=== PATIENT | female | born 1965 | race Caucasian/White ===

== ENCOUNTER 2016-06-20 19:32 | Inpatient (IN) | payer OTHER ==
--- NOTE | ~2016-06-20 | CO ---
Unit #: [id number] #: [id number] Patient: RAMON OLSON [id number] [address] [address] [id number] I MR#: [id number] NAME: RAMON OLSON ROOM: 575 Age: 50 Sex: F Admission Date: 06/20/2016 : 1965 Attending Physician: Jered Thacker M.D. 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 HISTORY OF PRESENT ILLNESS This is Dr. Miriam Zamora's patient. 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 BCR-ABL was 245%. Patient receiving Tasigna. During March 2016, her BCR-ABL ratio had dropped to 0.16. She is very compliant with the medication. Patient has chronic history of anemia. Patient has coronary artery disease. Patient is taking Brilinta. Patient has a hemorrhoidal bleeding. Patient came to hospital with shortness of breath, dyspnea on exertion, fatigue, and declined performance status. Her CBC showed WBC 7.6, hemoglobin 6.6, MCV 74, and platelets of 169. Her creatinine is 0.85. LFTs are normal. Transferrin saturation 3%. B12 145. Ferritin 4. She is receiving PRBC transfusion, intravenous iron, folic, and B12, which I started today. At present, she is feeling better. She wants to go home tomorrow. REVIEW OF SYSTEMS CONSTITUTIONAL: Mild declined performance status because of the anemia. EYES: No visual symptoms. EARS, NOSE AND THROAT: There is no runny nose or sore throat or difficulty hearing. CARDIOVASCULAR: No chest pain. No shortness of breath. No palpitations. No orthopnea. No PND. RESPIRATORY: No cough. No wheezing. No hemoptysis. GASTROINTESTINAL: No nausea, vomiting, diarrhea, constipation, hematochezia or melena. GENITOURINARY: No urinary frequency, hesitancy or urgency. No blood in the urine. MUSCULOSKELETAL: No muscle or joint pain. NEUROLOGIC: No headache. No numbness or tingling. No weakness. No seizure. PSYCHIATRIC: No anxiety, depression or mood disturbance. ENDOCRINE: No excessive urination or thirst. DERMATOLOGIC: No rash or change in the skin. ALLERGIC/IMMUNOLOGIC: No symptoms. Unit #: [id number] #: [id number] Patient: RAMON OLSON HEMATOLOGIC/LYMPHATIC: Denies any symptoms. PAST MEDICAL HISTORY CML on Tasigna, good response; CAD, status post stents on Brilinta. ALLERGIES Allergic to multiple medications including OxyContin. SOCIAL HISTORY Has been a smoker, 1 pack per day for almost more than 30 years, started at age 13. Denies alcohol abuse. SURGICAL HISTORY She has had multiple surgeries including partial hysterectomy, oophorectomy, cholecystectomy, and hemorrhoids. FAMILY HISTORY Negative for cancer. PHYSICAL EXAMINATION VITALS: Afebrile, pulse 60, respiratory rate 20, O2 saturation 100%, blood pressure 110/56. GENERAL: Patient is comfortable. ECOG is 0. The patient is pleasant. HEENT: Moist mucosa. Pupils equally reactive to light. Extraocular muscles intact. Sclerae anicteric. No obvious bleeding from nasal mucosa or oral mucosa. Scalp normal. Hearing normal. NECK: No JVD. No lymphadenopathy. LYMPHATIC/HEMATOLOGIC: There is no palpable adenopathy in the neck, axilla or inguinal area. CARDIOVASCULAR: S1, S2. Regular rate and rhythm. No S3 or S4. RESPIRATORY: Chest symmetrical, normal. Clear to auscultation bilaterally. No wheezes, no rales, no rhonchi. No dullness to percussion. ABDOMEN/GASTROINTESTINAL: Abdomen is soft, nontender, nondistended. No hepatosplenomegaly. EXTREMITIES: There is no clubbing, no cyanosis, no edema. No varicose veins. NEUROLOGICAL: Patient is alert, awake and oriented x3. Cranial nerves II-XII are intact. Sensory grossly intact. Motor is 4/5 in all four extremities. Gait is normal. Station is normal. Language is normal. Memory is normal. DTRs +2 in all four extremities. MUSCULOSKELETAL: No joint swelling. No bony tenderness. No muscle tenderness. SKIN: No petechiae, no rash, no ecchymosis. PSYCHIATRIC: No anxiety. No delusions or hallucinations. There is no agitation. Eye contact is normal. Affect is appropriate. There is no flight of ideas. DIAGNOSTIC STUDIES LABORATORY: As mentioned above above. IMPRESSION This is a 50-year-old female with the following active issues: 1. CML; patient was diagnosed with during May 2014. Her BCR-ABL ratio was 245%. She is taking Tasigna. At present, her BCR-ABL ratio is 0.16%. She is compliant. Will continue. She will follow up with Dr. Miriam Zamora. 2. Anemia: Most likely bleeding from AVM in the presence of Brilinta. I will give her intravenous iron, folic acid, and B12. Unit #: [id number] #: [id number] Patient: RAMON OLSON 3. Cardiovascular: Patient has a stent. She has coronary artery disease and she is on Brilinta. Please note that she is still smoking. Encouraged her to quit smoking. Dictated by... Marguerite Cline TD: 06/22/2016 07:11 JOB #: [id number] CC: Padmini/flavia Please Delete CONSULTATION REPORT X Bandar Zamora MD CONSULTATION REPORT
--- NOTE | ~2016-06-20 | US140 ---
[facility] A Service of [facility] RADIOLOGY TEXT RESULTS PATIENT: RAMON OLSON LOCATION: [facility]08-26 : [birth year] UNIT #: [id number] AGE: [address]: Jered Thacker MD SEX: F ORDER DR: [id number] [facility] [address] [place], [place] [address] [id number] I MR#: [id number] Acc #: [id number] NAME: RAMON OLSON : 1965 SEX: F STUDY DATE/TIME: 06/24/2016 16:13 UNIT: [facility] ROOM: [facility] STUDY DESCRIPTION: US UE Veins Unilat or Ltd Stdy Attending Physician: Jered Thacker M.D. Ordering Physician: Jered Thacker M.D. Primary Care Physician: Primary Care Physician No MEDICAL IMAGING REPORT This report is preliminary unless electronic signature is present EXAM Right upper extremity venous Doppler INDICATION Right upper extremity swelling, pain and redness for the past day. PROCEDURE Rod-scale color Doppler and spectral imaging deep veins right upper extremity COMPARISON None FINDINGS Deep veins right upper extremity compress normally, show normal color Doppler and spectral characteristics. There is superficial venous thrombosis in the right cephalic vein, that is occlusive. IMPRESSION 1. Superficial venous thrombosis is occlusive in the mid right cephalic vein. 2. No evidence for DVT in the right upper extremity Dictated by... Brien Painter M.D. THIS IS AN ELECTRONICALLY VERIFIED REPORT Brien Painter M.D. at 06/25/2016 7:18 AM EED/asya TD: 06/24/2016 22:10 JOB #: [id number] [facility] A [facility] RADIOLOGY TEXT RESULTS PATIENT: RAMON OLSON LOCATION: [facility] : 61 UNIT #: [id number] AGE: [address]: Jered Thacker MD SEX: F ORDER DR: MEDICAL IMAGING REPORT COPY
--- NOTE | ~2016-06-20 | HP ---
Unit #: [id number] #: [id number] Patient: RAMON OLSON [id number] [address] [address] [id number] I MR#: [id number] NAME: RAMON OLSON ROOM: [facility] Age: 50 Sex: F Admission Date: 06/20/2016 : 1965 Attending Physician: Sharonda Spencer M.D. Primary Care Physician: No Primary Care Physician HISTORY AND PHYSICAL CHIEF COMPLAINT Short of air, low hemoglobin. HISTORY OF PRESENT ILLNESS The patient is a 50-year-old female with a past medical history of CML, hypertension, coronary artery disease, COPD, hypothyroidism, cerebrovascular accident, diverticular disease, chronic back pain, tobacco abuse, who presented to the emergency department for evaluation of the above. Of note, the patient was hospitalized at [facility] 06/11/2016 for symptomatic anemia. She received 2 units of packed red blood cells. She was seen in consultation by Dr. Stallings. She apparently has severe iron deficiency anemia and intolerance to iron due to severe constipation. The plan was to treat her as an outpatient. The patient states that she has continued to be weak and short of breath. She has had dyspnea on exertion. Today she had bright red blood per rectum with hard stool. She denies any abdominal pain, no cough or fever. In the emergency department, hemoglobin was 6.6. She is currently received packed red blood cells. Blood pressure was 106/48. She is being admitted to [facility] for evaluation and further treatment. Of note, the patient underwent colonoscopy on 03/02/2014 that showed mild to moderate internal hemorrhoids with Dr. Negron. PAST MEDICAL HISTORY 1. Admission to [facility], 06/11/2016 for symptomatic anemia. 2. Chronic myelogenous leukemia followed by Dr. Zamora. 3. Chronic anemia. 4. Hypertension. 5. Coronary artery disease, status post stent placement. 6. COPD with continued tobacco abuse. 7. Hypothyroidism. 8. Cerebrovascular accident. 9. Diverticular disease, status post partial colectomy. 10. Chronic back pain maintained on narcotics. PAST SURGICAL HISTORY 1. Colonoscopy as noted above. 2. Epidural steroid injections. 3. Sigmoid colectomy. 4. Cardiac stent placement. Unit #: [id number] #: [id number] Patient: RAMON OLSON 5. Hemorrhoidectomy. 6. Abdominal hysterectomy. 7. Bladder repair. 8. Cholecystectomy. SOCIAL HISTORY The patient lives with her stepson. She smokes a pack of cigarettes daily. She denies alcohol use. FAMILY HISTORY Notable for coronary artery disease. ALLERGIES Oxycodone. HOME MEDICATIONS Zoloft, levothyroxine, baclofen, nitroglycerin, potassium, vitamin C, nicotine patch, atorvastatin, Tasigna, Valium, temazepam, metoprolol, Compazine, Colace, Senna, lisinopril, aspirin, hydrocodone, Brilinta. Home medications is going to be reviewed and verified. REVIEW OF SYSTEMS A ten point review of systems is negative except as indicated in the HPI. PHYSICAL EXAMINATION VITAL SIGNS: Temperature is 97.4, pulse 76, respirations 16, blood pressure 106/48. GENERAL: The patient is a female who is awake and alert. HEENT: Head is atraumatic. Conjunctivae are pale. NECK: Supple. Tracheal is midline. CARDIOVASCULAR: Regular rate and rhythm. LUNGS: Clear to auscultation bilaterally with no increased work of breathing. ABDOMEN: Soft, nontender with bowel sounds present in all four quadrants. EXTREMITIES: Nontender with no pedal edema. NEUROLOGIC: The patient is awake and alert. She follows commands. PSYCH: Mood and affect are normal. The patient is cooperative. SKIN: Generally pale. DIAGNOSTIC STUDIES LABORATORY STUDIES: Troponin is less than 0.05. Basic metabolic panel is normal. Complete blood count notable for hemoglobin and hematocrit of 6.6 and 21.1 respectively. MCV is 74.4, RDW is 19.1. ASSESSMENT The patient is a 50-year-old female with: 1. Asymptomatic anemia. The patient's hemoglobin was 9.1 on 06/11/2016 at 6.6 today. 2. Hematochezia. The patient last had a colonoscopy on 05/02/2013 that showed mild to moderate internal hemorrhoids. 3. History of chronic myelogenous leukemia, followed by Dr. Zamora. 4. Hypertension. 5. Coronary artery disease, status post stent placement. 6. COPD with continued tobacco abuse. 7. Hypothyroidism. 8. History of cerebrovascular accident. 9. Diverticular disease. 10. Chronic back pain maintained on opiates. Unit #: [id number] #: [id number] Patient: RAMON OLSON PLAN 1. Admit to an intermediate level. 2. Clear liquid diet for possible endoscopy pending Dr. Stallings's recommendations. 3. Hemoglobin and hematocrit one hour after transfusion q.6 hours. Will plan to transfer for hemoglobin less than 8 due to history of coronary artery disease. 4. Iron studies, B12, and folate. 5. Hemoccult stool. 6. Consult Dr. Stallings regarding symptomatic anemia. 7. Serial cardiac enzymes. 8. EKG if not done. 9. Protonix. 10. TSH. 11. Supplemental oxygen. 12. P.r.n. DuoNeb. 13. Repeat labs in the morning. 14. Check INR. 15. Hold aspirin and Brilinta pending further workup. Dictated by Marguerite Rubio/shea TD: 06/21/2016 05:33 JOB #: [id number] HISTORY AND PHYSICAL X Sharonda Spencer MD X HISTORY AND PHYSICAL
--- NOTE | ~2016-06-20 | DS ---
Unit #: [id number] #: [id number] Patient: RAMON OLSON [id number] [address] [place], [place] [address] [id number] I MR#: [id number] NAME: RAMON OLSON ROOM: 57 Age: 50 Sex: F Admission Date: 06/20/2016 : 1965 Discharge Date: 06/24/2016 Attending Physician: Jered Thacker M.D. Primary Care Physician: Miriam Primary Care Physician DISCHARGE SUMMARY ADMITTING DIAGNOSIS Symptomatic anemia. DISCHARGE DIAGNOSES 1. History of chronic myelogenous leukemia. 2. Hypertension. 3. Coronary artery disease. 4. Chronic obstructive pulmonary disease. 5. Hypothyroidism. 6. History of stroke. 7. Diverticular disease. 8. Chronic back pain. 9. Persistent tobacco abuse. PROCEDURES PERFORMED EGD, colonoscopy and push enteroscopy. CONSULTANTS Dr. Zamora, Dr. García, and Dr. Rivera. HISTORY OF PRESENTING ILLNESS The patient is a 50-year-old lady with multiple medical problems who was admitted on 06/20/2016 because of shortness of breath and hemoglobin of 6.6. HOSPITAL COURSE She had received platelet transfusions. She was on Brilinta because of coronary artery disease, status post stent placement in 12/2005. She had an EGD and colonoscopy done along with a push enteroscopy. No acute source of bleed was identified. Her hemoglobin is stable at 9.5. I spoke with Dr. Zamora and Dr. García and they mentioned it is okay to discharge. Dr García mentioned it is okay to restart the Brilinta. Will restarted the Brilinta. In the hospital course, her TSH was noted to be high at 37.98. She was taking 112 mcg of Synthroid at home. We consulted Dr. Rivera and the dose was increased to 137 mcg of Synthroid every day. She is requested to undergo a repeat TSH and followup with Dr. Rivera in four weeks. She is doing clinically better and she will be discharged home. PHYSICAL EXAMINATION ON DAY OF DISCHARGE VITAL SIGNS: Temperature 97.9, pulse rate 67, respiratory rate 20, blood pressure 136/52. GENERAL: Patient is alert and oriented x3, lying in the bed. No acute distress. HEENT: Normocephalic and atraumatic. No icterus. PERRLA. Extraocular muscles intact. Unit #: [id number] #: [id number] Patient: RAMON OLSON NECK: Neck is supple. No JVD. HEART: S1, S2, regular rate and rhythm. CHEST: Bilaterally equal air entry. Clear to auscultation. ABDOMEN: Soft, nontender. Bowel sounds present. EXTREMITIES: No edema. Normal pulses. DISCHARGE MEDICATIONS 1. Brilinta 90 mg p.o. twice a day. 2. Protonix 40 mg daily. 3. Baclofen 10 mg p.o. q. twice a day. 4. Synthroid, dosage is changes to 137 mcg p.o. daily. 5. Nitroglycerin p.r.n. 6. Ascorbic acid 1,000 mg p.o. daily. 7. Zoloft 100 mg in the morning. 8. Combivent 3 mL inhalation q.4 p.r.n. for shortness of breath. 9. Lipitor 80 mg daily. 10. Tasigna 150 mg p.o. b.i.d. 11. Compazine 10 mg p.o. 3 times a day. 12. Nicotine 21 mg topically daily. 13. Valium 10 mg p.o. twice a day. 14. Temazepam 30 mg at bedtime. 15. Metoprolol 25 mg daily. 16. Colace 200 mg p.o. twice a day. 17. Senna 2 tabs p.o. at bedtime. 18. Lisinopril 20 mg daily. 19. Aspirin 81 mg daily. 20. Hydrocodone and Tylenol 1 tab p.o. q.6 p.r.n. for pain. Note: I am not giving any prescriptions for hydrocodone, she is taking a prescription from her primary care. DISCHARGE INSTRUCTIONS Other discharge instructions explained in detail to the patient. Total time spent in her care 35 minutes. Dictated by... Marguerite Fitzpatrick TD: 06/25/2016 13:15 JOB #: [id number] DISCHARGE SUMMARY X X DISCHARGE SUMMARY
--- NOTE | ~2016-06-20 | OR ---
Unit #: [id number] #: [id number] Patient: RAMON OLSON [id number] [address] [place], [place] [address] [id number] I MR#: [id number] NAME: RAMON OLSON ROOM: 575 Date of Procedure: 06/23/2016 Admission Date: 06/20/2016 Surgeon: Jamarcus García M.D. : 1965 Attending Physician: Jered Thacker M.D. OPERATIVE REPORT PREOPERATIVE DIAGNOSES Iron deficiency anemia. The patient does have underlying chronic myeloid leukemia. She has required blood transfusion two occasions by 10 days. PROCEDURES PERFORMED Push enteroscopy up to proximal jejunum with biopsies as well as colonoscopy up to terminal ileum. POSTOPERATIVE DIAGNOSES For push enteroscopy: Completely normal examination up to proximal jejunum. Multiple areas of proximal jejunum were intubated and appeared normal. The patient did not have any angiodysplasias. Rest of the examination also normal. Biopsies were obtained from the duodenal mucosa and jejunal mucosa to look for any evidence of partial villous atrophy or celiac disease. For colonoscopy: The patient has healthy surgical anastomosis in the sigmoid colon from previous surgery, otherwise examination was normal up to cecum and terminal ileum. The quality of the prep was excellent. A single diverticulum was seen in the sigmoid colon. The patient did not have any polyps nor any mass lesions and no angiodysplasias were present. The quality of the prep was excellent. The patient did not have any hemorrhoids. RECOMMENDATIONS There is no potential source of blood loss in the GI tract and a supportive and symptomatic treatment with blood transfusions and iron infusions are needed. SEDATION USED Procedural sedation. DESCRIPTION OF PROCEDURE Following detailed explanation of the potential risks and complications of an upper endoscopy and a push enteroscopy as well as colonoscopy namely perforation, bleeding, and complications related to sedation, the patient was brought to GI lab and laid in the left lateral decubitus position. Lubricated tip of the Olympus video pediatric colonoscopy was inserted through the oral cavity into the esophagus. The entire esophageal mucosa was examined and appeared normal. Z-line was nicely demarcated, there being no esophagitis or hiatus hernia. The scope was then advanced into Unit #: [id number] #: [id number] Patient: RAMON OLSON the gastric cavity and the latter was insufflated. Mucosa of the fundus, body, and antrum was examined and appeared normal. Pylorus was intubated with visualization of the normal duodenal bulb as well as second, third, and fourth part of duodenum. The scope tip was then navigated up to the area of the proximal jejunum after intubating several jejunal loops. The mucosa throughout was found to be normal. Successive segments of the small bowel mucosa were examined upon withdrawal and appeared unremarkable. There were no angiodysplasias seen. Biopsies were obtained from the duodenum mucosa to look for any evidence of partial villous atrophy or celiac disease. The scope was then withdrawn in the antrum and retroverted, whereupon incisura, cardia, and greater curve was examined and no additional findings noted. The scope was then withdrawn in the distal esophagus. The entire esophageal mucosa was examined all the way up to pharynx. No additional findings were noted. The examination table was then turned by 180 degrees and the patient was positioned for a colonoscopy. A digital rectal examination was performed, which was normal. Lubricated tip of the Olympus video colonoscope was inserted through the anus and advanced under direct vision. The scope was advanced past rectosigmoid into descending colon. A single diverticulum was seen in the area of the sigmoid colon where an end-to-side colocolic anastomosis was also seen. The mucosa however throughout was normal. The scope tip was then navigated all the way up to cecum with visualization of the ileocecal valve and the appendiceal orifice. Preparation was excellent with good visualization and photodocumentation was obtained. Last several inches of the terminal ileum were also visualized after intubation of the ileocecal valve and appeared normal. Successive segments of the colonic mucosa were examined upon withdrawal and appeared unremarkable. There being no polyps, mass lesions, or AVMs. Other than the single diverticulum seen earlier, no other abnormalities were noted. The end-to-side surgical anastomosis in the sigmoid colon was again noted. The patient did not have any internal hemorrhoids at anal verge. The scope was then withdrawn. The patient returned to the recovery area. She tolerated the procedure without any postprocedure complications. Dictated by.Jer. Marguerite Ramirez TD: 06/23/2016 20:08 JOB #: [id number] CC: Bandar Zamora M.D. OPERATIVE REPORT X Jamarcus García MD PROCEDURE OPERATIVE NOTE
--- NOTE | ~2016-06-20 | EKG ---
PATIENT: RAMON OLSON UNIT #: [id number] Ventricular Rate: 77 BPM Atrial Rate: 77 BPM P-R Interval: 162 ms QRS Duration: 94 ms Q-T Interval: 418 ms QTC Calculation(Bezet): 473 ms P [place]: 49 degrees Calculated R [place]: -7 degrees Calculated T [place]: 67 degrees Diagnosis Line: Normal sinus rhythm Diagnosis Line: Inferior infarct , age undetermined Diagnosis Line: Abnormal ECG Diagnosis Line: When compared with ECG of 10-JUN-2016 20:17, Diagnosis Line: No significant change was found Diagnosis Line: Confirmed by JOJO GARCIA MD ([id number]) on 06/21/2016 Diagnosis Line: 5:16:29 PM INTERPRETING MD: JOSE FLORES
--- NOTE | ~2016-06-20 | CO ---
Unit #: [id number] #: [id number] Patient: RAMON OLSON [id number] [address] [address] [id number] MR#: [id number] NAME: RAMON OLSON ROOM: 575 Age: 50 Sex: F Admission Date: 06/20/2016 : 1965 Attending Physician: Jered Thacker M.D. Consultation Date: 06/21/2016 CONSULTATION REPORT REASON FOR CONSULT Abnormal TSH level. HISTORY OF PRESENT ILLNESS This is a 50-year-old female with history of CML, hypothyroidism, hypertension, coronary artery disease, CVA, history of stent placement, who has been recently hospitalized with symptomatic pneumonia, received 2 packed RBC. She came back again with the weakness, shortness of air. She was found to be severely anemic with a hemoglobin of 6.6. On her labs, she was found to have normal thyroid function test with a TSH of 37. I have been asked to see the patient for further management. MEDICAL HISTORY CML, anemia, coronary artery disease, hypothyroidism, COPD, history of tobacco use. PAST SURGICAL HISTORY Cardiac stent placement in the past, hysterectomy, bladder repair, cholecystectomy. SOCIAL HISTORY Lives with her stepson. Smokes one pack per day. FAMILY HISTORY Remarkable for coronary artery disease. ALLERGIES To oxycodone. MEDICATIONS Home medication list is reviewed. The patient has been taking levothyroxine 100 mcg daily. For other medications, please see current medicines. REVIEW OF SYSTEMS A 10-point review of systems is remarkable for shortness of air, weakness, blood per rectum. Rest of the 10-point review of systems is unremarkable. PHYSICAL EXAMINATION GENERAL: She looks very pale. VITAL SIGNS: Temperature 97.6, pulse 62, respirations 20, blood pressure is 122/56. HEENT: EOMI. Pupils are equally reactive to light. NECK: Supple. No thyromegaly noted. No lymph nodes. Unit #: [id number] #: [id number] Patient: RAMON OLSON CHEST: Good air entry. CVS: Regular rhythm. S1, S2. No murmurs. ABDOMEN: Soft and obese. Bowel sounds positive. EXTREMITIES: No edema noted. DIAGNOSTIC STUDIES LABORATORY RESULTS: TSH is 37.98. ASSESSMENT 1. Hypothyroidism. 2. Coronary artery disease plus stent. 3. History of chronic myelogenous leukemia. PLAN Increase levothyroxine to 137 mcg daily. Follow up in office in 4 weeks. Dictated by... Marguerite Steward/shala TD: 06/22/2016 03:44 JOB #: [id number] CONSULTATION REPORT X Minor Rivera MD X CONSULTATION REPORT
--- NOTE | ~2016-06-20 | CO ---
Unit #: [id number] #: [id number] Patient: RAMON OLSON [id number] [address] [place], [place] [address] [id number] I MR#: [id number] NAME: RAMON OLSON ROOM: 575 Age: 50 Sex: F Admission Date: 06/20/2016 : 1965 Attending Physician: Jered Thacker M.D. Consultation Date: 06/21/2016 CONSULTATION REPORT REASON FOR CONSULTATION Iron deficiency anemia. HISTORY OF PRESENT ILLNESS Ms. Delong is a very pleasant 50-year-old white female. The patient has presented with a history of increasing shortness of breath and found to have severe symptomatic iron-deficiency anemia. She is feeling a bit better after being transfused with packed cells. This is the second consecutive admission in less than two weeks for identical reason. The patient does have significant past medical problems most prominently chronic myeloid leukemia and COPD, as well as coronary artery disease. She denies any history of overt GI bleed in the form of hematemesis, melena, or hematochezia. She had no past medical history of hematemesis, melena, or hematochezia. Yesterday, she had some bright red blood per rectum. There is no history of any abdominal pain, chills, or rigors, or fever. The patient had a colonoscopy in 2013, that did not show any potential source of blood loss, but only hemorrhoids. PAST MEDICAL HISTORY Significant for history of chronic myelogenous leukemia, followed by Dr. Zamora; history of hypertension; coronary artery disease, status post coronary stent placements; COPD; continued tobacco abuse; hypothyroidism; cerebrovascular accident; diverticulosis; status post partial colectomy and anastomosis; chronic back pain, maintained on narcotics. PAST SURGICAL HISTORY Include epidural steroid injections, sigmoid colectomy, cardiac coronary stent placements, hemorrhoidectomy, abdominal hysterectomy, bladder suspension repair, cholecystectomy. HOME MEDICATIONS Include Zoloft, levothyroxine, baclofen, nitroglycerin, potassium, vitamin C, nicotine patch, atorvastatin, Tasigna, Valium, temazepam, metoprolol, Compazine, Colace, senna, lisinopril, aspirin, hydrocodone, Brilinta. ALLERGIES She is allergic to oxycodone. FAMILY HISTORY Significant for coronary artery disease. SOCIAL HISTORY The patient lives with her stepson. Continues to smoke and does not drink alcohol. Unit #: [id number] #: [id number] Patient: RAMON OLSON REVIEW OF SYSTEMS Detailed review of organ systems does not reveal any recent weight loss. No history of fever, chills, or rigors. No history of headache, seizures, chest pain, or syncope. No history of cough, expectoration, or hemoptysis. There was history of increasing shortness of breath and fatigue. No history of dysuria, hematuria, or pyuria. No history of focal seizures or extremity weakness. Rest of review of organ systems is unremarkable. PHYSICAL EXAMINATION GENERAL: She is alert and oriented, appears quite pale. VITAL SIGNS: Stable with a temperature of 98.3, pulse is 61 per minute and regular, respiratory rate is 18, and blood pressure is 122/56. She weighs 164 pounds. Her baseline weight has been about the same in the past. HEENT: She has moderate pallor. There being no icterus, lymphadenopathy, or peripheral edema. CARDIOVASCULAR: Normal heart sounds. No murmurs on auscultation. LUNGS: Reveal normal breath sounds. Good air entry. ABDOMEN: Soft and nontender. Liver and spleen are not palpable. Bowel sounds normal. DIAGNOSTIC STUDIES LABORATORY RESULTS: Shows admission hemoglobin of 6.6, post transfusion hemoglobin is 8.8. White count was 7.2 and platelet count was 157. Metabolic profile is normal. The patient's iron studies show virtually no iron reserves with a transferrin saturation and iron and ferritin in single digits. CLINICAL IMPRESSION The patient with severe symptomatic iron-deficiency anemia on a background of chronic myeloid leukemia and other comorbid cardiopulmonary problems as mentioned under the past medical history. The most likely etiology of iron deficiency anemia is occult gastrointestinal blood loss. The patient will require panendoscopy especially to look for angiodysplasias or AVMs in the gastrointestinal tract. A push enteroscopy and a colonoscopy will be scheduled in the next couple of days depending on the patient's ability to tolerate the colonic prep. The pros and cons of procedure, potential risks, and complications were discussed with the patient. She was reassured. Thank you for asking me to see this pleasant woman. I appreciate the consult. Dictated by... Jamarcus García M.D. COLTON/shala TD: 06/23/2016 15:37 JOB #: [id number] CC: Marguerite Cline M.D. Unit #: [id number] #: [id number] Patient: RAMON OLSON CONSULTATION REPORT X Jamarcus García MD CONSULTATION REPORT
[~2016-06-20 19:32] MED LIST: ALB/IPRATROPIUM/1 EA INH; AMBIEN10 MG PO; ASPIRIN81 MG PO; ATORVASTATIN CA80 MG PO; BACLOFEN10 MG PO; BISACODYL 5 MG PO; BRILINTA90 MG PO; CATAPRES0.1 MG PO; COLACE 100 MG PO; COMBIVENT INHALER PO; COMPAZINE10 M1 PO; COMPAZINE10 M3 PO; DIAZEPAM10 MG PO; DOCUSATE SODIU100 MG PO; DOXYCYCLINE HY100 M3 PO; FOLBIC RF TABL1 EACH PO; GABAPENTIN600 MG PO; HYDROCODON-ACE1 EAC5 PO; LEVOTHYROXINE100 MCG PO; LEVOTHYROXINE25 MCG PO; LIPITOR80 MG PO; LISINOPRIL20 MG PO; LISINOPRIL30 MG PO; LO-DOSE ASPIRIN81 M1 PO; LOPRESSOR PO; METOPROLOL 12.5 MG PO; METOPROLOL SUCC25 MG PO; MUCINEX 600 MG PO; NEURONTIN600 MG PO; NICOTINE1 EAC2 TOP; NITROGLYCERIN0.4 MG SL; NORVASC 5 MG PO; OMNICEF 300 MG PO; PERCOCET 5/321 UDTAB PO; POTASSIUM; POTASSIUM PO; POTASSIUM99 M1 PO; POTASSIUM99 M2 PO; PREDNISONE10 MG PO; RESTORIL15 MG PO; SENNA LAXATIVE1 TAB PO; SENNA8.6 M1 PO; SENOKOT S PO; SERTRALINE HCL50 MG PO; SYNTHROID 50 MCG PO; SYNTHROID PO; SYNTHROID0.1 MG PO; TASIGNA150 MG PO; TEMAZEPAM30 MG PO; TYLENOL 325 MG PO; VALIUM10 MG PO; VITAMIN B-1000 MCG/1 IM; VITAMIN B12-FO1 EACH PO; VITAMIN C500 M6 PO; XARELTO15 MG PO; XARELTO20 MG PO; ZESTRIL30 MG PO; ZITHROMAX PO; ZOLOFT100 MG PO
[2016-06-20 19:51] LABS: BASOPHIL% 0.3 % (0-2.5); EOSINOPHIL# 0.1 X10e3 (0-0.7); EOSINOPHIL% 1.8 % (0.0-7.0); HEMATOCRIT 21.1 % (35.0-45.0); LYMPHOCYTE# 1.5 X10e3 (1.0-3.5); MEAN CELL VOLUME 74.4 FL (83-96); MEAN CORPUSCULAR HEMOGLOBIN 23.3 PG (28-34); MEAN CORPUSCULAR HGB CONC 31.3 g/dL (30-36); MEAN PLATELET VOLUME 9.1 FL (6.5-11.5); MONOCYTE# 0.4 X10e3 (0-1.0); MONOCYTE% 5.3 % (3.0-12.0); NEUTROPHIL# 5.6 X10e3 (1.5-7.1); NEUTROPHIL% 73.6 % (40-75); PLATELET COUNT 169 X10e3 (140-420); RED BLOOD COUNT 2.84 X10e (3.90-5.30); RED CELL DISTRIBUTION WIDTH 19.1 % (11.0-15.5); WHITE BLOOD COUNT 7.6 X10e3 (4.0-10.5)
[2016-06-20 19:58] LABS: DIFF IND YES; HEMOGLOBIN 6.6 gm/dL (12.0-16.0)
[2016-06-20 20:07] LABS: POC - CKMB 3.1 ng/mL (0.0-7.9); POC - TROPONIN <0.05 ng/mL (<=0.05)
[2016-06-20 20:15] LABS: BLOOD UREA NITROGEN 15 mg/dL (9-23); BUN/CREATININE RATIO 21.42; CARBON DIOXIDE 22 mmol/L (22-31); CHLORIDE 108 mmol/L (100-111); CREATININE SERUM 0.7 mg/dL (0.6-1.4); GLOM FILT RATE Estimated ABOVE60 mL/min (>60); GLUCOSE FASTING 103 mg/dL (70-110); POTASSIUM 4.1 mmol/L (3.5-5.1); SODIUM 140 mmol/L (135-145)
[2016-06-20 20:28] LABS: PLATELET ESTIMATE NORMAL (NORMAL)
[2016-06-20 20:29] LABS: HYPOCHROMIA SL; MICROCYTOSIS SL
[2016-06-20 20:30] LABS: ANISOCYTOSIS MOD; POLYCHROMASIA SL
[2016-06-20 23:45] LABS: PROTHROMBIN TIME (PATIENT) 10.7 SECONDS (9.6-11.5)
[2016-06-21 02:17] LABS: HEMATOCRIT 27.5 % (35.0-45.0)
[2016-06-21 02:19] LABS: HEMOGLOBIN 8.7 gm/dL (12.0-16.0)
[2016-06-21 02:59] LABS: %MB 2.1 % (0.0-4.0); MB 3.9 ng/ml
[2016-06-21 08:05] LABS: BLOOD UREA NITROGEN 15 mg/dL (9-23); BUN/CREATININE RATIO 18.75; CALCIUM SERUM 9.2 mg/dL (8.4-10.2); CARBON DIOXIDE 22 mmol/L (22-31); CHLORIDE 104 mmol/L (100-111); CREATININE SERUM 0.8 mg/dL (0.6-1.4); GLOM FILT RATE Estimated ABOVE60 mL/min (>60); GLUCOSE FASTING 100 mg/dL (70-110); IRON SERUM 13 ug/dL (28-170); POTASSIUM 3.7 mmol/L (3.5-5.1); SODIUM 139 mmol/L (135-145); TOTAL IRON BINDING CAPACITY 395 ug/dL (269-535); TRANSFERRIN 282 mg/dL (192-382); TRANSFERRIN SATURATION 3 % (20-50)
[2016-06-21 08:08] LABS: FOLATE (FOLIC ACID) 22.5 ng/mL (>5.8)
[2016-06-21 08:52] LABS: BASOPHIL% 0.4 % (0-2.5); EOSINOPHIL# 0.2 X10e3 (0-0.7); EOSINOPHIL% 2.6 % (0.0-7.0); HEMATOCRIT 22.4 % (35.0-45.0); HEMOGLOBIN 7.3 gm/dL (12.0-16.0); LYMPHOCYTE# 2.2 X10e3 (1.0-3.5); LYMPHOCYTE% 29.8 % (17.0-45.0); MEAN CELL VOLUME 75.4 FL (83-96); MEAN CORPUSCULAR HEMOGLOBIN 24.5 PG (28-34); MEAN CORPUSCULAR HGB CONC 32.6 g/dL (30-36); MEAN PLATELET VOLUME 9.3 FL (6.5-11.5); MONOCYTE# 0.5 X10e3 (0-1.0); MONOCYTE% 6.9 % (3.0-12.0); NEUTROPHIL# 4.4 X10e3 (1.5-7.1); NEUTROPHIL% 60.3 % (40-75); PLATELET COUNT 157 X10e3 (140-420); RED BLOOD COUNT 2.97 X10e (3.90-5.30); RED CELL DISTRIBUTION WIDTH 19.6 % (11.0-15.5); WHITE BLOOD COUNT 7.2 X10e3 (4.0-10.5)
[2016-06-21 08:54] LABS: DIFF IND YES
[2016-06-21 09:38] LABS: ANISOCYTOSIS SL; PLATELET ESTIMATE NORMAL (NORMAL)
[2016-06-21 09:39] LABS: HYPOCHROMIA SL; MICROCYTOSIS SL
[2016-06-21 09:41] LABS: OVALOCYTES PRESENT
[2016-06-21 09:43] LABS: %MB 1.9 % (0.0-4.0); MB 2.9 ng/ml; TARGET CELLS SL
[2016-06-21 14:22] LABS: HEMATOCRIT 27.3 % (35.0-45.0); HEMOGLOBIN 8.8 gm/dL (12.0-16.0)
[2016-06-21 19:56] LABS: HEMATOCRIT 31.1 % (35.0-45.0)
[2016-06-22 08:26] LABS: HEMATOCRIT 31.3 % (35.0-45.0); HEMOGLOBIN 10.2 gm/dL (12.0-16.0); MEAN CELL VOLUME 78.3 FL (83-96); MEAN CORPUSCULAR HEMOGLOBIN 25.6 PG (28-34); MEAN CORPUSCULAR HGB CONC 32.7 g/dL (30-36); MEAN PLATELET VOLUME 9.2 FL (6.5-11.5); RED CELL DISTRIBUTION WIDTH 19.8 % (11.0-15.5); WHITE BLOOD COUNT 8.7 X10e3 (4.0-10.5)
[2016-06-22 08:58] LABS: ALBUMIN SERUM 4.4 g/dL (3.5-5.0); ALKALINE PHOSPHATASE 72 U/L (32-92); ALT (SGPT) 13 U/L (10-40); AST (SGOT) 18 U/L (10-42); BILIRUBIN,TOTAL 0.6 mg/dL (0.2-2.0); BLOOD UREA NITROGEN 18 mg/dL (9-23); CALCIUM SERUM 8.9 mg/dL (8.4-10.2); CARBON DIOXIDE 22 mmol/L (22-31); CHLORIDE 104 mmol/L (100-111); CREATININE SERUM 0.8 mg/dL (0.6-1.4); GLOM FILT RATE Estimated ABOVE60 mL/min (>60); GLUCOSE FASTING 88 mg/dL (70-110); PROTEIN TOTAL SERUM 7.6 g/dL (6.0-8.3); SODIUM 136 mmol/L (135-145)
[2016-06-23 06:40] LABS: HEMATOCRIT 29.1 % (35.0-45.0); HEMOGLOBIN 9.5 gm/dL (12.0-16.0); MEAN CELL VOLUME 78.5 FL (83-96); MEAN CORPUSCULAR HEMOGLOBIN 25.5 PG (28-34); MEAN CORPUSCULAR HGB CONC 32.5 g/dL (30-36); MEAN PLATELET VOLUME 9.4 FL (6.5-11.5); RED BLOOD COUNT 3.71 X10e (3.90-5.30); RED CELL DISTRIBUTION WIDTH 20.6 % (11.0-15.5); WHITE BLOOD COUNT 6.4 X10e3 (4.0-10.5)
[2016-06-23 07:02] LABS: BLOOD UREA NITROGEN 13 mg/dL (9-23); BUN/CREATININE RATIO 16.25; CALCIUM SERUM 8.7 mg/dL (8.4-10.2); CARBON DIOXIDE 26 mmol/L (22-31); CHLORIDE 103 mmol/L (100-111); CREATININE SERUM 0.8 mg/dL (0.6-1.4); GLOM FILT RATE Estimated ABOVE60 mL/min (>60); GLUCOSE FASTING 82 mg/dL (70-110); POTASSIUM 3.8 mmol/L (3.5-5.1); SODIUM 135 mmol/L (135-145)
[2016-06-24 07:52] LABS: HEMATOCRIT 28.9 % (35.0-45.0); HEMOGLOBIN 9.5 gm/dL (12.0-16.0); MEAN CELL VOLUME 78.4 FL (83-96); MEAN CORPUSCULAR HEMOGLOBIN 25.8 PG (28-34); MEAN CORPUSCULAR HGB CONC 32.9 g/dL (30-36); MEAN PLATELET VOLUME 9.1 FL (6.5-11.5); RED BLOOD COUNT 3.69 X10e (3.90-5.30); RED CELL DISTRIBUTION WIDTH 21.4 % (11.0-15.5); WHITE BLOOD COUNT 7.4 X10e3 (4.0-10.5)
[2016-06-24 08:24] LABS: BLOOD UREA NITROGEN 13 mg/dL (9-23); BUN/CREATININE RATIO 16.25; CALCIUM SERUM 8.7 mg/dL (8.4-10.2); CARBON DIOXIDE 24 mmol/L (22-31); CHLORIDE 108 mmol/L (100-111); CREATININE SERUM 0.8 mg/dL (0.6-1.4); GLOM FILT RATE Estimated ABOVE60 mL/min (>60); GLUCOSE FASTING 101 mg/dL (70-110); POTASSIUM 3.8 mmol/L (3.5-5.1); SODIUM 137 mmol/L (135-145)
[2016-06-24] MEDS ORDERED: PROTONIX PO (13:35)
[2016-06-24] MEDS ORDERED: COMBIVENT U/D3 M1 INH (13:38)
== END 2016-06-24 21:30 | disposition home health service (06) | DRG 812 ==
LOC: CED 19:32 → CEDOF 23:15 → C5C 06-21 00:16
PROVIDERS: Emergency Medicine; Family Medicine; Internal Medicine; Internal Medicine Gastroenterology; Internal Medicine Hematology
PROC: 30233N1 Transfusion of Nonautologous Red Blood Cells into Peripheral Vein, Percutaneous Approach (ICD-10-PCS; 2016-06-21)
PROC: 0DB98ZX Excision of Duodenum, Via Natural or Artificial Opening Endoscopic, Diagnostic (ICD-10-PCS; principal; 2016-06-23 14:00)
PROC: 0DBA8ZX Excision of Jejunum, Via Natural or Artificial Opening Endoscopic, Diagnostic (ICD-10-PCS; 2016-06-23 14:00)
PROC: 0DJD8ZZ Inspection of Lower Intestinal Tract, Via Natural or Artificial Opening Endoscopic (ICD-10-PCS; 2016-06-23 14:00)
DX: D50.9 Iron deficiency anemia, unspecified (principal); C92.10 Chronic myeloid leukemia, BCR/ABL-positive, not having achieved remission; K92.1 Melena; I10 Essential (primary) hypertension; J44.9 Chronic obstructive pulmonary disease, unspecified; F17.200 Nicotine dependence, unspecified, uncomplicated; I25.10 Atherosclerotic heart disease of native coronary artery without angina pectoris; E03.9 Hypothyroidism, unspecified; K57.90 Diverticulosis of intestine, part unspecified, without perforation or abscess without bleeding; G89.29 Other chronic pain; M54.9 Dorsalgia, unspecified; Z86.73 Personal history of transient ischemic attack (TIA), and cerebral infarction without residual deficits; D64.9 Anemia, unspecified; K64.8 Other hemorrhoids; Z90.710 Acquired absence of both cervix and uterus; Z88.5 Allergy status to narcotic agent
CPT/HCPCS: 36415; 80048; 80053; 82550; 82553; 82607; 82728; 82746; 83540; 83550; 84443; 84484; 85014; 85018; 85025; 85027; 85610; 86850; 86900; 86901; 86923; 88305; 93005; 93971; 94640; 94760; 99285; C9113; J2250; J2916; J3010; J3420; P9016

== ENCOUNTER → 2016-10-16 | Outpatient (CLI) | payer OTHER ==
[~2016-10-16] MED LIST changes: +COMBIVENT U/D3 M1 INH; +PROTONIX PO; +SENNA LAXATIVE25 MG PO; +VITAMIN D1000 UNIT PO
--- NOTE | ~2016-10-16 | CT55 ---
[facility] A Service of [facility] RADIOLOGY TEXT RESULTS PATIENT: RAMON OLSON LOCATION: CNUC : 61 UNIT #: [id number] AGE: [address]: Bandar Zamora MD SEX: F ORDER DR: [id number] [place] [id number] [facility]. [place], [place] [address] [id number] O MR#: [id number] Acc #: [id number] NAME: RAMON OLSON : 1965 SEX: F STUDY DATE/TIME: 10/16/2016 8:55 UNIT: [facility] ROOM: STUDY DESCRIPTION: CT Chest W Con Attending Physician: Bandar Zamora M.D. Referring Physician: Bandar Zamora M.D. Ordering Physician: Bandar Zamora M.D. Primary Care Physician: No Primary Care Physician MEDICAL IMAGING REPORT This report is preliminary unless electronic signature is present EXAM CT chest INDICATIONS Leukemia. Sternal mass. Iron deficiency anemia. CML. Restaging for observation for metastatic disease. TECHNIQUE CT of the chest utilizing 100 mL Isovue-370 IV contrast. Coronal and sagittal reconstructions were obtained. This CT exam was performed with one or more of the following radiation dose reduction techniques: automatic exposure control, adjustment of mA and/or kV according to patient size, and iterative reconstruction. COMPARISON Bone scan dated 10/16/2016. CT chest 04/24/2012. FINDINGS There are some calcifications at the aortic valve. This is most commonly seen in association with aortic valvular stenosis. The thoracic aorta is normal in caliber. There is moderate coronary artery calcifications. No pericardial or pleural effusion. No pathologically enlarged mediastinal or hilar lymph nodes. No enlarged axillary or supraclavicular lymph nodes. There is no suspicious pulmonary findings. There is a small pulmonary nodule in the left lower lobe that is unchanged from 2014 and considered benign. IMPRESSION 1. No evidence of metastatic disease in the chest. [facility] A Service of [facility] RADIOLOGY TEXT RESULTS PATIENT: RAMON OLSON LOCATION: CNUC : 63 UNIT #: [id number] AGE: [address]: Bandar Zamora MD SEX: F ORDER DR: 2. Aortic valvular calcifications. This is often associated with aortic valvular stenosis. Consider correlation with echocardiogram. Dictated by... Brenden Jeff M.D. THIS IS AN ELECTRONICALLY VERIFIED REPORT Brenden Jeff M.D. at 10/16/2016 5:00 PM RUTH ANN/naila TD: 10/16/2016 15:45 JOB #: [id number] MEDICAL IMAGING REPORT Page 1 of 1 COPY
--- NOTE | ~2016-10-16 | NM8 ---
[facility] A Service of [facility] RADIOLOGY TEXT RESULTS PATIENT: RAMON OLSON LOCATION: CN : 63 UNIT #: [id number] AGE: [address]: Bandar Zamora MD SEX: F ORDER DR: [id number] [place] [id number] [facility]. [place], [place] [address] [id number] O MR#: [id number] Acc #: [id number] NAME: RAMON OLSON : 1965 SEX: F STUDY DATE/TIME: 10/16/2016 11:48 UNIT: [facility] ROOM: STUDY DESCRIPTION: NM Bone or Joint Whole Body Attending Physician: Bandar Zamora M.D. Referring Physician: Bandar Zamora M.D. Ordering Physician: Bandar Zamora M.D. Primary Care Physician: Primary Care Physician No MEDICAL IMAGING REPORT This report is preliminary unless electronic signature is present EXAM Whole-body bone scan HISTORY 50-year-old female with chronic myeloid leukemia, not currently in remission. Complains of knot in sternum. Noticed several months ago. COMPARISON CT chest 10/16/2016 FINDINGS Whole-body and selected spot images performed of the axial and appendicular skeleton form the axial and appendicular skeleton following the intravenous administration of 24.4 mCi technetium 99m MDP. Examination demonstrates mild increased uptake within the medial aspect of both knees in the region of the proximal medial tibia could reflect early degenerative change. Mild increased uptake within the left knee patellofemoral joint also may reflect early osteoarthritic change. No abnormal uptake identified within the long bones, pelvis, ribs, sternum or skull to suggest osseous metastatic disease. Bilateral renal activity and normal bladder activity noted. IMPRESSION 1. Mild degenerative uptake within the medial compartment of both knees and also within the patellofemoral compartment of the left knee. 2. No findings to suggest osseous metastatic disease and in particular no abnormal uptake identified within the sternum. Dictated by.Jessica Arroyo M.D. [facility] A Service of [facility] RADIOLOGY TEXT RESULTS PATIENT: RAMON OLSON LOCATION: [facility] : 63 UNIT #: [id number] AGE: [address]: Bandar Zamora MD SEX: F ORDER DR: THIS IS AN ELECTRONICALLY VERIFIED REPORT Maureen Arroyo M.D. at 10/17/2016 2:47 PM Sanjuanita TD: 10/16/2016 21:18 JOB #: [id number] MEDICAL IMAGING REPORT Page 1 of 1 COPY
--- NOTE | ~2016-10-16 | MY29 ---
[facility] A Service of [facility] RADIOLOGY TEXT RESULTS PATIENT: RAMON OLSON LOCATION: CNUC : 63 UNIT #: [id number] AGE: [address]: Bandar Zamora MD SEX: F ORDER DR: [id number] [facility] [address] [facility]. [place], [place] [address] [id number] O MR#: [id number] Acc #: [id number] NAME: RAMON OLSON : 1965 SEX: F STUDY DATE/TIME: 10/16/2016 9:42 UNIT: CN ROOM: STUDY DESCRIPTION: MY PACO SCREENING W/ CAD BILAT Attending Physician: Bandar Zamora M.D. Referring Physician: Bandar Zamora M.D. Ordering Physician: Bandar Zamora M.D. Primary Care Physician: Primary Care Physician No MEDICAL IMAGING REPORT This report is preliminary unless electronic signature is present EXAM Digital screening mammogram, 10/16/2016, [facility]. HISTORY 50-year-old woman, no risk elevation. Interim weight loss. Bruised area upper outer quadrant right breast. Annual screen. COMPARISON Screening mammogram 09/24/2013 with followup diagnostic right breast imaging 10/25/2013. TECHNIQUE Digital imaging of each breast was completed utilizing screening protocol. Review includes FDA-approved CAD device. FINDINGS Breast parenchyma is fatty replaced and stable. Small intramammary lymph nodes are noted bilaterally. There is no interval occurring mass. There are no suspicious microcalcifications and no architectural deformity. IMPRESSION Negative mammogram. Annual screening recommended. Patients over the age of 40 are entered into a reminder system with target due date for the next mammogram. A result letter will also be sent to the patient. BIRADS: 1 Negative Dictated by... Trip Talamantes M.D. [facility] A Service of [facility] RADIOLOGY TEXT RESULTS PATIENT: RAMON OLSON LOCATION: CNUC : 63 UNIT #: [id number] AGE: [address]: Bandar Zamora MD SEX: F ORDER DR: THIS IS AN ELECTRONICALLY VERIFIED REPORT Trip Talamantes M.D. at 10/17/2016 11:25 AM Glendy TD: 10/16/2016 12:31 JOB #: [id number] MEDICAL IMAGING REPORT Page 1 of 1 COPY
[2016-10-16 10:35] LABS: POC - CREATININE 1.17 mg/dL (0.44-1.03)
== END | disposition home or self-care (01) ==
LOC: CNUC 07:37
PROVIDERS: Internal Medicine Hematology
DX: Z12.31 Encounter for screening mammogram for malignant neoplasm of breast (principal); C92.10 Chronic myeloid leukemia, BCR/ABL-positive, not having achieved remission; K90.9 Intestinal malabsorption, unspecified; D50.8 Other iron deficiency anemias; I70.0 Atherosclerosis of aorta; R94.8 Abnormal results of function studies of other organs and systems
CPT/HCPCS: 71260; 78306; 82565; A9503; G0202; Q9967

== ENCOUNTER → 2016-11-13 | Outpatient (CLI) | payer OTHER | END | disposition home or self-care (01) | LOC: CECH 09:15 | DX: C92.10 Chronic myeloid leukemia, BCR/ABL-positive, not having achieved remission (principal); D50.8 Other iron deficiency anemias; K90.9 Intestinal malabsorption, unspecified; I34.0 Nonrheumatic mitral (valve) insufficiency; I36.1 Nonrheumatic tricuspid (valve) insufficiency; I51.7 Cardiomegaly; I35.2 Nonrheumatic aortic (valve) stenosis with insufficiency | CPT/HCPCS: 93306 ==

== ENCOUNTER 2016-12-20 18:13 | Observation (INO) | payer OTHER ==
[~2016-12-20] VITALS: Ht 157.5 cm; Wt 68.8 kg
--- NOTE | ~2016-12-20 | EKG ---
PATIENT: RAMON OLSON UNIT #: [id number] Ventricular Rate: 66 BPM Atrial Rate: 66 BPM P-R Interval: 166 ms QRS Duration: 94 ms Q-T Interval: 456 ms QTC Calculation(Bezet): 478 ms P Brook: 34 degrees Calculated R Brook: -15 degrees Calculated T Brook: 55 degrees Diagnosis Line: Normal sinus rhythm Diagnosis Line: Nonspecific ST abnormality Diagnosis Line: Abnormal ECG Diagnosis Line: When compared with ECG of 20-JUN-2016 18:47, Diagnosis Line: No significant change was found Diagnosis Line: Confirmed by YONIS LEI MD ([id number]) on Diagnosis Line: 12/23/2016 4:41:35 PM INTERPRETING MD: ELDER
--- NOTE | ~2016-12-20 | HP ---
Unit #: [id number] #: [id number] Patient: RAMON OLSON [id number] [address] [place], [place] [address] [id number] I MR#: [id number] NAME: RAMON OLSON ROOM: 302 Age: 51 Sex: F Admission Date: 12/20/2016 : 1965 Attending Physician: Minor Rivera M.D. Primary Care Physician: No Primary Care Physician HISTORY AND PHYSICAL CHIEF COMPLAINT Shortness of breath for the last two weeks. HISTORY OF PRESENT ILLNESS This is a 51-year-old female who has a past medical history of chronic myelogenous leukemia, hypertension, coronary artery disease with previous stent, chronic obstructive pulmonary disease, hypothyroid, diverticular disease, chronic back pain, history of TIA in the past, anxiety and depression. Long time tobacco abuse. She is on oral chemo for chronic myelogenous leukemia. She has a history of chronic anemia and symptomatic anemia requiring transfusion in the past multiple times. She had admission also in 05/2016 with similar symptoms of anemia. She underwent evaluation at that time with Dr. García. She had a push enteroscopy and colonoscopy which showed no active source of bleed. She was eventually discharged home. She is coming today with a chief complaint of symptoms of shortness of breath, dyspnea, fatigue, weak for two weeks. She was found in the emergency room with blood pressure of 96/60 and on further workup she was found to have hemoglobin 7.4 and hematocrit 23. She has been admitted for transfusion. She denies any chest pain. She denies any dark stool, nausea, vomiting, abdominal pain, blood in the stool or any other complaint. No chest pain. PAST MEDICAL HISTORY 1. History of admission to [facility] in the past, 05/2016 for symptomatic anemia, requiring transfusion. 2. Chronic myelogenous leukemia, followed by Dr. Landis. 3. History of chronic anemia. 4. Hypertension. 5. Coronary artery disease with previous stent. 6. Chronic obstructive pulmonary disease with continued tobacco abuse. 7. Hypothyroid. 8. History of TIA in the past. 9. Diverticular disease, status post partial colectomy. 10. Chronic back pain, maintained on narcotics. 11. Dyslipidemia. 12. Anxiety/depression. PAST SURGICAL HISTORY 1. Colonoscopy and push enteroscopy in 05/2016. 2. Epidural steroid injection. 3. Sigmoid colectomy. 4. Cardiac stent placement. 5. Hemorrhoidectomy. 6. Abdominal hysterectomy. Unit #: [id number] #: [id number] Patient: RAMON OLSON 7. Bladder repair. 8. Cholecystectomy. SOCIAL HISTORY The patient lives with her stepson. She smokes one pack of cigarettes daily. Denies alcohol. Denies illicit drug use. FAMILY HISTORY Notable for positive coronary artery disease. ALLERGIES Oxycodone. HOME MEDICATIONS 1. Compazine 10 mg t.i.d. 2. Colace 100 mg p.r.n. 3. Lisinopril 20 mg daily. 4. Aspirin 81 mg daily. 5. Hydrocodone 10/325 mg q.4 h. p.r.n. 6. Brilinta 90 mg p.o. b.i.d. 7. Protonix 40 mg daily. 8. Combivent q.4 h. 9. Senna 2 tablets daily p.r.n. 10. Vitamin D 1000 units p.o. daily. 11. Atorvastatin 80 mg daily. 12. Tasigna 150 mg b.i.d. 13. Valium 10 mg b.i.d. 14. Temazepam 30 mg daily. 15. Metoprolol succinate 25 mg daily. 16. Zoloft 100 mg daily. 17. Levothyroxine 137 mcg daily. 18. Baclofen 10 mg b.i.d. 19. Nitro 0.4 mg sublingual p.r.n. 20. Nicotine patch 20 mg daily. REVIEW OF SYSTEMS Negative except as per history of present illness. PHYSICAL EXAMINATION GENERAL: Middle-aged female lying in the bed comfortably, currently not in any distress. She is alert, awake and oriented times three. VITALS: Currently, temperature 98.2, heart rate 78, respiratory rate 18, blood pressure 96/60. HEENT: Head is atraumatic. Conjunctivae pale. NECK: Supple. No jugular venous distension. No thyromegaly. LUNGS: Clear to auscultation. No rhonchi. No wheezing. HEART: S1 and S2. Regular rate and rhythm. 2/6 systolic murmur. ABDOMEN: Soft, nontender, nondistended. Bowel sounds positive. EXTREMITIES: Inspection normal. No cyanosis, clubbing or edema. NEUROLOGIC: Alert, awake, oriented times three. Cranial nerves II through XII intact. No focal neurologic deficits. SKIN: Generally pale and warm. PSYCHIATRIC: Normal mood and affect. DIAGNOSTIC STUDIES IMAGING: Chest x-ray negative. LABORATORY: Sodium 139, potassium 4.6, chloride 106, CO2 22, glucose 93, Unit #: [id number] #: [id number] Patient: RAMON OLSON BUN 22, creatinine 1.1. LFTs within normal limits. Troponin less than 0.05. White blood cell count 7, hemoglobin 7.4, hematocrit 23.1, platelets 203. ASSESSMENT/PLAN 1. Symptomatic anemia with history of chronic anemia requiring transfusion in the past. Will admit the patient to 23-hour observation. Will transfuse two units. She had a workup in 05/2016, push enteroscopy and colonoscopy by Dr. García which showed no significant source of bleeding. It was normal. 2. History of chronic myelogenous leukemia on chemo. Followed by Dr. Zamora. Ask Dr. Zamora to see while the patient is in the hospital. 3. History of hypertension. Blood pressure is on the lower side. Hold metoprolol and lisinopril with systolic blood pressure less than 110. 4. Coronary artery disease with previous stent, on Brilinta. 5. History of chronic obstructive pulmonary disease. 6. Hypothyroid. 7. Diverticular disease requiring partial colectomy in the past. 8. History of dyslipidemia. 9. Chronic back pain. 10. History of TIA. 11. Anxiety/depression. 12. Tobacco abuse. 13. DVT prophylaxis. Will place the patient on SCDs. Dictated by Marguerite Davis TD: 12/21/2016 09:04 JOB #: [id number] HISTORY AND PHYSICAL Page 1 of 1 X X HISTORY AND PHYSICAL
--- NOTE | ~2016-12-20 | CR72 ---
[facility] A Service of [facility] RADIOLOGY TEXT RESULTS PATIENT: RAMON OLSON LOCATION: [facility] 302-01 : 63 UNIT #: [id number] AGE: [address]: Minor Rivera MD SEX: F ORDER DR: [id number] [facility] [address] [facility]. [place], [place] [address] [id number] MR#: [id number] Acc #: [id number] NAME: RAMON OLSON : 1965 SEX: F STUDY DATE/TIME: 12/20/2016 19:12 UNIT: [address] ROOM: [facility] STUDY DESCRIPTION: CR Chest Single View Portable Attending Physician: Minor Rivera M.D. Ordering Physician: Ortega Jiménez M.D. Primary Care Physician: No Primary Care Physician MEDICAL IMAGING REPORT This report is preliminary unless electronic signature is present EXAM AP chest. HISTORY Shortness of breath, cough and fatigue for the past 2 days. TECHNIQUE Single AP view of the chest was obtained and compared with 06/10/2016. FINDINGS A single AP view of the chest shows both lungs to be clear. The heart is normal in size. The mediastinal contour is normal. No significant bone abnormalities are seen. IMPRESSION Normal AP chest. Dictated by... Suleman Rodríguez M.D. THIS IS AN ELECTRONICALLY VERIFIED REPORT Suleman Rodríguez M.D. at 12/23/2016 7:13 AM ADITHYA/hanane TD: 12/21/2016 22:42 JOB #: [id number] MEDICAL IMAGING REPORT Page 1 of 1 COPY
--- NOTE | ~2016-12-20 | DS ---
Unit #: [id number] #: [id number] Patient: RAMON OLSON [id number] [address] [place], [place] [address] [id number] I MR#: [id number] NAME: RAMON OLSON ROOM: 302 Age: 51 Sex: F Admission Date: 12/20/2016 : 1965 Discharge Date: 12/21/2016 Attending Physician: Minor Rivera M.D. Primary Care Physician: No Primary Care Physician DISCHARGE SUMMARY PRINCIPAL DIAGNOSES 1. Symptomatic anemia. 2. History of chronic myelogenous leukemia. 3. History of coronary artery disease. Previous stent placement. 4. Hypertension. 5. Chronic obstructive pulmonary disease. 6. Hypothyroidism. 7. Diverticular disease. 8. History of transient ischemic attack. This is a pleasant, 51-year-old female who has a history of CML for which she follows Dr. Zamora with the oncology group. She presented to the emergency room with chief complaint of increasing shortness of air, fatigue worsening over the last two to three weeks. She was found to be hypotensive with a blood pressure of 96/60 in the ER and had hemoglobin 7.4 and hematocrit of 23. She is admitted for the blood transfusions. She will be discharged home after blood transfusions are completed. The patient was already seen by Dr. Zamora and, from his point, she can be discharged home on her current home medications. She will be further following with him as an outpatient. HOME MEDICATION DISCHARGE LIST 1. Brilinta 90 mg p.o. b.i.d. 2. Hydrocodone 10/325 mg q.4 p.r.n. 3. Aspirin 81 mg daily. 4. Lisinopril 20 mg daily. 5. Colace 100 mg p.r.n. 6. Compazine 10 mg t.i.d. 7. Senna two tablets daily p.r.n. 8. Atorvastatin 80 mg daily. 9. Tasigna 150 mg b.i.d. 10. Valium 10 mg t.i.d. 11. Temazepam 30 mg daily. 12. Metoprolol 25 mg daily. 13. Zoloft 100 mg daily. 14. Levothyroxine 137 mcg daily. 15. Baclofen 10 mg b.i.d. 16. Nitro 0.4 mg sublingual. Follow with Dr. Zamora as an outpatient. DISPOSITION To home. Unit #: [id number] #: [id number] Patient: RAMON OLSON CONDITION AT DISCHARGE Stable. Dictated by... Marguerite Steward/annel TD: 12/24/2016 08:48 JOB #: [id number] DISCHARGE SUMMARY Page 1 of 1 X Minor Rivera MD X DISCHARGE SUMMARY
[~2016-12-20 18:13] MED LIST changes: -SENNA LAXATIVE25 MG PO; -VITAMIN D1000 UNIT PO
[2016-12-20 19:51] LABS: BASOPHIL% 0.5 % (0-2.5); EOSINOPHIL# 0.1 X10e3 (0-0.7); EOSINOPHIL% 0.8 % (0.0-7.0); HEMATOCRIT 23.1 % (35.0-45.0); HEMOGLOBIN 7.4 gm/dL (12.0-16.0); LYMPHOCYTE# 1.3 X10e3 (1.0-3.5); LYMPHOCYTE% 16.9 % (17.0-45.0); MEAN CORPUSCULAR HEMOGLOBIN 25.8 PG (28-34); MEAN CORPUSCULAR HGB CONC 31.9 g/dL (30-36); MEAN PLATELET VOLUME 9.5 FL (6.5-11.5); MONOCYTE# 0.4 X10e3 (0-1.0); MONOCYTE% 4.7 % (3.0-12.0); NEUTROPHIL# 5.9 X10e3 (1.5-7.1); NEUTROPHIL% 77.1 % (40-75); PARTIAL THROMBOPLASTIN TIME 23.1 SECONDS (23.5-31.3); PLATELET COUNT 203 X10e3 (140-420); PROTHROMBIN TIME (PATIENT) 10.7 SECONDS (10.0-11.7); RED BLOOD COUNT 2.85 X10e (3.90-5.30); RED CELL DISTRIBUTION WIDTH 16.7 % (11.0-15.5); WHITE BLOOD COUNT 7.6 X10e3 (4.0-10.5)
[2016-12-20 19:52] LABS: DIFF IND YES
[2016-12-20 20:05] LABS: ALBUMIN SERUM 4.3 g/dL (3.5-5.0); BILIRUBIN, DIRECT 0.1 mg/dL (0.0-0.2); BILIRUBIN,INDIRECT 0.5 mg/dL (0.0-0.9); BILIRUBIN,TOTAL 0.6 mg/dL (0.2-2.0); CALCIUM SERUM 9.3 mg/dL (8.4-10.2); CREATININE SERUM 1.1 mg/dL (0.6-1.4); GLOM FILT RATE Estimated 57.3 mL/min (>60); POTASSIUM 4.6 mmol/L (3.5-5.1); PROTEIN TOTAL SERUM 7.6 g/dL (6.0-8.3)
[2016-12-20 20:06] LABS: HYPOCHROMIA MOD; PLATELET ESTIMATE NORMAL (NORMAL)
[2016-12-20 20:08] LABS: POC - TROPONIN <0.05 ng/mL (<=0.05)
[2016-12-20] MEDS ORDERED: SENNA LAXATIVE25 MG PO (20:47)
[2016-12-20] MEDS ORDERED: VITAMIN D1000 UNIT PO (20:49)
[2016-12-21 15:19] LABS: IRON SERUM 43 ug/dL (28-170); LACTIC ACID DEHYDROGENASE 106 U/L (91-180); TOTAL IRON BINDING CAPACITY 318 ug/dL (269-535); TRANSFERRIN 227 mg/dL (192-382); TRANSFERRIN SATURATION 14 % (20-50)
[2016-12-21 15:25] LABS: FERRITIN 6 ng/mL (11-307)
[2016-12-21 15:29] LABS: FOLATE (FOLIC ACID) >23.3 ng/mL (>5.8)
== END 2016-12-21 15:40 | disposition home or self-care (01) ==
LOC: CED 18:13 → C3A PCU 21:40 → CEDOF 21:40 → CED 21:40 → CEDOF 21:58 → C3A PCU 22:47
PROVIDERS: Emergency Medicine; Internal Medicine Hematology & Oncology
DX: D64.9 Anemia, unspecified (principal); I25.10 Atherosclerotic heart disease of native coronary artery without angina pectoris; I10 Essential (primary) hypertension; J44.9 Chronic obstructive pulmonary disease, unspecified; E03.9 Hypothyroidism, unspecified; K57.90 Diverticulosis of intestine, part unspecified, without perforation or abscess without bleeding; Z85.6 Personal history of leukemia; Z95.5 Presence of coronary angioplasty implant and graft; Z86.73 Personal history of transient ischemic attack (TIA), and cerebral infarction without residual deficits; Z79.82 Long term (current) use of aspirin; Z79.02 Long term (current) use of antithrombotics/antiplatelets; Z79.899 Other long term (current) drug therapy
CPT/HCPCS: 36415; 36430; 71010; 80048; 80076; 82553; 82607; 82728; 82746; 83010; 83540; 83550; 83615; 84484; 85025; 85044; 85610; 85730; 86850; 86870; 86880; 86885; 86900; 86901; 86905; 86922; 87040; 93005; 94640; 94760; 96360; 99291; G0378; P9016